=== PATIENT | male | born 1985 | race Caucasian/White ===

== ENCOUNTER 2020-12-10 12:28 | Outpatient (CLI) | payer OTHER ==
[2020-12-10] MEDS ORDERED: ROPivacaine/PF 0.2%, 10 ML ONE (12:53)
[2020-12-10] MEDS ORDERED: LIDOCAINE 1%, 10ML ONE (12:53)
[2020-12-10] MEDS ORDERED: OMNIPAQUE 300 MG/ML, 10ML VIAL ONE (13:26)
[2020-12-10] MEDS ORDERED: GADOTERATE 5 MMOL/10 ML VIAL ONE (13:26)
== END 2020-12-10 23:59 | disposition home or self-care (01) ==
LOC: RAD 12:28
PROVIDERS: ATTEND Orthopaedic Surgery
DX: M25.551 Pain in right hip (principal); Z79.891 Long term (current) use of opiate analgesic; Z79.899 Other long term (current) drug therapy
CPT/HCPCS: 27093; 73525; 73722; A9575; J2795; J3490; Q9967

== ENCOUNTER 2020-12-10 12:42 | Outpatient (CLI) | payer OTHER | END 2020-12-10 23:59 | disposition home or self-care (01) | LOC: RAD 12:42 | PROVIDERS: ATTEND Orthopaedic Surgery | DX: Z02.9 Encounter for administrative examinations, unspecified (principal) ==